=== PATIENT | female | born 1960 | race Caucasian/White ===

== ENCOUNTER → 2017-04-02 | Outpatient (CLI) | payer MEDICARE ==
--- NOTE | 2017-04-02 14:13 | WOMENS IMAGING REPORT ---
EXAM DESCRIPTION: BONE DENSITY HIP/SPINE COMPLETED DATE/TIME: 04/02/2017 1:57 pm REASON FOR STUDY: M81.0 M81.0 AGE-RELATED OSTEOPOROSIS W/O CURRENT PATHOLOGICAL FRAC COMPARISON: None. TECHNIQUE: Dual-Energy X-ray Absorptiometry (DEXA) of the AP Spine and Hip. LIMITATIONS: None. FINDINGS: LUMBAR SPINE: The bone mineral density (BMD) measured from L1-L4 in the AP projection correlates with a T-score of -0.8, which is normal as defined by the World Health Organization. HIP: The bone mineral density (BMD) measured in the left hip correlates with a T-score of 0.9, which is no rmal as defined by the World Health Organization. IMPRESSION: 1. LUMBAR SPINE: Normal 2. HIP: Normal COMMENT: The World Health Organization defines low BMD as follows: T-score: Normal: Greater than -1.0 Osteopenia: Between -1.0 and -2.5 Osteoporosis: Less than -2.5 without fractures Established osteoporosis: Less than -2.5 with fractures In general, you may wish to consider: Diagnosis Treatment Follow-up DEXA Normal BMD Prevention 2-3 years Osteopenia Prevention/Therapy 1-2 years Osteoporosis Therapy Yearly TECHNICAL DOCUMENTATION: JOB ID: [id number]- All Rights Reserved
--- NOTE | 2017-04-02 17:07 | WOMENS IMAGING REPORT ---
EXAM DESCRIPTION: 3D SCREENING MAMMO BILAT COMPLETED DATE/TIME: 04/02/2017 1:44 pm REASON FOR STUDY: Z12.31, ROUTINE SCREENING MAMMO M81.0 AGE-RELATED OSTEOPOROSIS W/O CURRENT PATHOL OGICAL FRAC COMPARISON: 03/30/2016 TECHNIQUE: Standard craniocaudal and mediolateral oblique views of each breast recorded using digita l acquisition and breast tomosynthesis. LIMITATIONS: None. FINDINGS: Findings present which are benign by mammographic criteria. No suspicious masses, calcifi cations or architectural distortion. Pertinent benign findings: Right breast stereotactic biopsy markers. Benign right breast calcificati ons. Read with the assistance of CAD. .[facility] - R2 Cenova Version 1.3 .[facility] - R2 Cenova Version 1.3 .[facility] - R2 Cenova Version 2.4 .[facility] - R2 Cenova Version 2.4 .[facility] - R2 [employer] Version 9.2 Benign mammographic findings may include one or more of the following: Smooth masses, popcorn/rim/co arse calcifications, asymmetries, post-procedure changes, and lesions with long-standing stability. IMPRESSION: BENIGN MAMMOGRAPHIC FINDINGS. BIRADS 2 BREAST DENSITY: b. There are scattered areas of fibroglandular density. BIRAD: 2 BENIGN FINDING(S) RECOMMENDATION: RECOMMENDATION: ROUTINE SCREENING Please consider bilateral screening tomosynthesis in March 2018 COMMENT: The patient has been notified of the results by letter per SA requirements. Additional no tification policies are in place for contacting patient with suspicious or incomplete findings. Quality ID #[id number]: The [employer] recommends an annual screening mammogram for women aged 40 years or over. This facility utilizes a reminder system to ensure that all patients receive reminder letters, and/or direct phone calls for appointments. This includes reminders for routine scr eening mammograms, diagnostic mammograms, or other Breast Imaging Interventions when appropriate. Th is patient will be placed in the appropriate reminder system. The [employer] (ACR) has developed recommendations for screening MRI of the breast s in certain patient populations, to be used in conjunction with mammography. Breast MRI surveillanc e may be appropriate for women with more than 20% lifetime risk of developing breast cancer as deter mined by genetic testing, significant family history of the disease, or history of mantle radiation f or Hodgkins Disease. ACR Practice Guidelines 2008. DBT Technology DBT is a type of tomographic mammography. With conventional mammography, overlapping breast tissue ma y make lesions difficult to detect, even with good compression. DBT uses an x-ray tube that rotates a round the breast, taking images at different angles. These images are then combined to create thin sl ices of the breast that the radiologist can view as a 3D reconstruction. The Hologic unit can perform full-field digital mammograms (2D imaging); or DBT (3D imaging); or both, in a combination mode that quickly performs both the mammogram and the tomosynthesis scan while the breast is still compressed. PQRS 6045F: Fluoroscopic imaging is not utilized for breast tomosynthesis. TECHNICAL DOCUMENTATION: FINDING NUMBER: (1) ASSESSMENT: (1) JOB ID: [id number] [employer]- All Rights Reserved
== END ==
LOC: WI 13:12
PROVIDERS: ATTEND Internal Medicine
DX: M81.0 Age-related osteoporosis without current pathological fracture (principal)
CPT/HCPCS: 77063; 77080; G0202; 77067

== ENCOUNTER → 2017-12-07 | Outpatient (CLI) | payer MEDICARE ==
--- NOTE | 2017-12-07 10:42 | RADIOLOGY REPORT (SQ) ---
EXAM DESCRIPTION: CT SOFT TISSUE NECK WITH COMPLETED DATE/TIME: 12/07/2017 9:10 am REASON FOR STUDY: M54.2 CERVICALGIA R59.9 ENLARGED LYMPH NODES, UNSPECIFIED M54.2 CERVICALGIA R59.9 ENLARGED LYMPH NODES, UNSPECIFIED COMPARISON: None. TECHNIQUE: Post IV contrasted scanning from skull base through lung apices with review of bone, soft tissue and lung windows. Reconstructed coronal and sagittal MPR images reviewed. All images stored on PACS. All CT scanners at this facility use dose modulation, iterative reconstruction, and/or weight based d osing when appropriate to reduce radiation dose to as low as reasonably achievable (ALARA). [facility]: Dose Right [facility]: CareDose [facility]: Dose Right [facility]: Teradose 4D [facility]: [email or web address] CONTRAST TYPE AND DOSE: contrast/concentration: Isovue 370.00 mg/ml; Total Contrast Delivered: 75.0 ml; Total Saline Delivered: 55.0 ml RENAL FUNCTION: GFR > 60. RADIATION DOSE: . LIMITATIONS: None. FINDINGS: SKULL BASE: Intact. MAJOR SALIVARY GLANDS: No solid or cystic masses. No inflammatory changes. LYMPHADENOPATHY: Mildly enlarged anterior triangle nodes above the hyoid, the largest about 10 x 12 mm. Adenopathy is fairly symmetric bilaterally. No significant infra hyoid or supraclavicular adeno artur. MUCOSAL MASSES OR ASYMMETRY: No mucosal masses or asymmetry. LARYNX/CORDS: No abnormal findings. VASCULAR STRUCTURES: The major vessels are patent. LUNG APICES: COPD. BONES: Intact. THYROID: Normal size. No masses. PARANASAL SINUSES: Clear. OTHER: No other significant finding. IMPRESSION: Mild cervical adenopathy. No underlying mass. TECHNICAL DOCUMENTATION: JOB ID: [id number] Quality ID # [id number]: Final reports with documentation of one or more dose reduction techniques (e.g., Au tomated exposure control, adjustment of the mA and/or kV according to patient size, use of iterative reconstruction technique) 2010 [employer]- All Rights Reserved Reading location - IP/workstation name: [email or web address]
== END ==
LOC: RAD 08:31
PROVIDERS: ATTEND Physician Assistant Medical
DX: M54.2 Cervicalgia (principal); R59.9 Enlarged lymph nodes, unspecified
CPT/HCPCS: 70491

== ENCOUNTER → 2017-12-19 | Outpatient (CLI) | payer MEDICARE ==
--- NOTE | 2017-12-20 19:17 | RADIOLOGY REPORT (SQ) ---
EXAM DESCRIPTION: PET CT SKULL/THIGH COMPLETED DATE/TIME: 12/19/2017 5:57 pm REASON FOR STUDY: BREAST CANCER C50.411 MALIG NEOPLM OF UPPER-OUTER QUADRANT OF RIGHT FEMALE COMPARISON: CT soft tissue neck 12/07/2017 Report from PET-CT 02/19/2010, [place] RADIONUCLIDE AND DOSE: 11.3 mCi F18 FDG The route of agent administration: Intravenous FASTING BLOOD SUGAR: 92 mg/dl CONTRAST TYPE AND DOSE: No CT contrast given. TECHNIQUE: Blood glucose level was verified. Above dose of FDG was injected intravenously. 2-D seg mented attenuation correction images were obtained from the base of the skull to the midthighs. Nonc ontrast CT images were obtained for attenuation correction and fusion with emission images. CT image s were performed without oral or intravenous contrast and are not sensitive for parenchymal lesions. A series of overlapping emission PET images were obtained. [facility] by the radiologist. Images stored on PACS. LIMITATIONS: None. FINDINGS: HEAD AND NECK: There are mildly enlarged jugulodigastric lymph nodes with activity at base line. Right jugulodigastric lymph node 1.2 x 1.1 cm in size with SUV 2.5. Left jugulodigastric lymp h node 1.3 x 0.9 cm with SUV 2.2. There is mild diffuse activity throughout the pharyngeal tonsils and lymphoid tissue at the tongue ba se, ranging from 3.1 to 4.3 SUV. CHEST: No areas of abnormal metabolic activity in the chest. ABDOMEN AND PELVIS: No areas of abnormal metabolic activity in the abdomen or pelvis. Expected physi ologic activity is present in the genitourinary system and bowel. PROXIMAL LOWER EXTREMITIES: No areas of abnormal metabolic activity in the soft tissues of the lower extremities. BONES: No abnormal metabolic activity in the visualized skeleton. ADDITIONAL CT FINDINGS: Old right breast and axilla surgery, no increased metabolic activity worrisom e for residual or recurrent right breast cancer. 3 x 2 cm benign cyst in the liver at the falciform ligament. Obstructive lung disease. Small hiatal hernia. OTHER: Liver background activity 2.4 SUV. Blood pool background activity 1.5 SUV IMPRESSION: Mild increased activity of lymphoid tissue at the pharyngeal tonsils and tongue base wit hout well-circumscribed mass. Mildly enlarged jugulodigastric lymph nodes with metabolic activity at baseline No PET-CT evidence of recurrent or residual breast cancer TECHNICAL DOCUMENTATION: JOB ID: [id number] [employer]- All Rights Reserved Reading location - IP/workstation name: [email or web address]
== END ==
LOC: RAD 15:52
PROVIDERS: ATTEND Internal Medicine
DX: C50.411 Malignant neoplasm of upper-outer quadrant of right female breast (principal)
CPT/HCPCS: 78815; A9552

== ENCOUNTER 2018-01-07 06:01 | Day surgery (SDC) | payer MEDICARE ==
[2018-01-06 10:23] LABS: HEMATOCRIT 41.9 % (36.0-47.0); MEAN CORPUSCULAR HEMOGLOBIN 27.7 pg (27.0-33.4); MEAN CORPUSCULAR HGB CONC 33.4 g/dL (32.0-36.0); MEAN CORPUSCULAR VOLUME 83 fl (80-97); PLATELET COUNT 253 10^3/uL (150-450); RED BLOOD COUNT 5.06 10^6/uL (3.72-5.28); WHITE BLOOD COUNT 6.9 10^3/uL (4.0-10.5)
[2018-01-06 10:38] LABS: ANION GAP 10 (5-19); BLOOD UREA NITROGEN 10 mg/dL (7-20); CALCIUM 10.2 mg/dL (8.4-10.2); CARBON DIOXIDE 32 mmol/L (22-30); CHLORIDE 101 mmol/L (98-107); GLUCOSE 89 mg/dL (75-110); POTASSIUM 4.9 mmol/L (3.6-5.0); SODIUM 143.4 mmol/L (137-145)
[~2018-01-07 06:01] MED LIST: CEFAZOLIN SODIUM 2 GM in NORMAL SALINE 100 ML IV PRN; LACTATED RINGERS 1000 ML IV PRN; LIDOCAINE 0.5% INJ-PF (5 MG/ML) 50 ML SDV SUBCUT PRN
[2018-01-07] MEDS ORDERED: LIDOCAINE 2% INJ-PF (20 MG/ML) 10 ML AMPUL ONE (06:25)
[2018-01-07] MEDS ORDERED: FENTANYL CITRATE INJ/PF 100 MCG/2 ML AMPUL ONE (06:25)
[2018-01-07] MEDS ORDERED: PROPOFOL INJ 200 MG/20 ML VIAL IV ONE (06:26)
[2018-01-07] MEDS ORDERED: DEXAMETHASONE SOD PHOSPHATE INJ 4 MG/1 ML VIAL ONE (06:26)
[2018-01-07] MEDS ORDERED: ONDANSETRON HCL INJ/PF 4 MG/2 ML SDV ONE (06:26)
[2018-01-07] MEDS ORDERED: MIDAZOLAM 2 MG/2 ML INJ ONE (06:26)
[2018-01-07] MEDS ORDERED: OXYMETAZOLINE HCL 0.05% NASAL SPRAY 15 ML BOTTLE ONE (08:23)
[2018-01-07] MEDS ORDERED: MEPERIDINE HCL/PF INJ 25 MG/1 ML DISP.SYRIN IV PRN (08:27)
[2018-01-07] MEDS ORDERED: OXYCODONE-ACETAMINOPHEN 5-325 MG TABLET PO PRN ×2 (08:27)
[2018-01-07] MEDS ORDERED: MORPHINE SULFATE 10 MG/ML INJ IV PRN (08:27)
[2018-01-07] MEDS ORDERED: DIPHENHYDRAMINE HCL 50 MG/ML VIAL IV PRN (08:27)
[2018-01-07] MEDS ORDERED: FENTANYL CITRATE INJ/PF 100 MCG/2 ML AMPUL IV PRN ×3 (08:27)
[2018-01-07] MEDS ORDERED: PROMETHAZINE HCL INJ 25 MG/1 ML VIAL IV PRN ×3 (08:27→09:51)
[2018-01-07] MEDS ORDERED: RINGERS SOLUTION,LACTATED 1,000 ML IV PRN (09:51)
[2018-01-07] MEDS ORDERED: HYDROCOD/ACETAMIN 7.5-325 MG/15 ML ORAL SOLN UDCUP PO PRN (09:51)
[2018-01-07] MEDS ORDERED: ONDANSETRON HCL INJ/PF 4 MG/2 ML SDV IV PRN (09:51)
[2018-01-07 11:12] VITALS: BP 144/65
--- NOTE | 2018-01-17 21:29 | OPERATIVE REPORT E ---
Operative Report NAME: KENNETH GARCIA : 1960 AGE: 57Y DATE OF SURGERY: 01/07/2018 ROOM: PREOPERATIVE DIAGNOSES: 1. ODYNOPHAGIA. 2. HISTORY OF BREAST CANCER. 3. CHRONIC DYSPHAGIA. POSTOPERATIVE DIAGNOSES: 1. ODYNOPHAGIA. 2. HISTORY OF BREAST CANCER. 3. CHRONIC DYSPHAGIA. OPERATION: Upper airway rigid endoscopy with directed biopsies. SURGEON: JUAREZ KILPATRICK D.O. ANESTHESIA: General endotracheal tube. ANESTHESIA STAFF: NARGIS Prieto. ESTIMATED BLOOD LOSS: Less than 5 mL. FLUIDS: 1100 mL. COMPLICATIONS: None. DRAINS: None. SPONGE COUNT: Verified. MATERIALS FORWARDED SPECIMEN: 1. Numerous biopsies from the left base of tongue area. 2. Biopsies from the vallecula. 3. Biopsies from the right base of tongue. These specimens were sent to pathology for frozen and permanent pathology evaluation. Intraoperatively, the pathologist reported that adequate specimens had been obtained, and no malignancy or concerning findings were noted initially on frozen section. FINDINGS: 1. Left base of tongue area adjacent to the vallecula with area of concern that correlated with the area noted during clinic endoscopic evaluation. 2. The vallecula was with a midline area of fullness. 3. Right base of tongue was overall unremarkable in appearance. 4. There were no overt exophytic necrotic areas of concern noted. INDICATIONS: This is a 57-year-old white female who was seen and evaluated in the [facility] office. The patient had been referred from [facility] for history of dysphagia and odynophagia. The patient stated that in September 2017, she had the flu, and ever since then, she feels like her neck glands have been swollen. The patient states that they are not increasing in size, but however, feel persistently enlarged. The patient, otherwise, reports chronic symptoms that are consistent with dysphagia since September 2017. The patient otherwise denies any referred otalgia, unexplained weight loss, or night sweats. The patient reports a cough and frequent need to clear her throat, and is being treated for reflux with Zantac twice a day and Prilosec 1 time per day. The patient is also with history of stage III breast cancer, and was again referred from [facility] due to the concern for cervical adenopathy and odynophagia and hoarseness. Prior to her referral, the patient had undergone a CT of the neck, as well as a PET CT with a right jugular digastric 1.2-cm lymph node with SUV of 2.5, left jugulodigastric lymph node of 1.3 cm with SUV of 2.2, and mild diffuse activity through the pharyngeal and lymphoid tissues at the base of tongue, ranging from 3.1 to 4.3 SUV. Otherwise, there were not any other areas of uptake noted. The patient also underwent clinic-based flexible endoscopic evaluation with 1 area at the left base of tongue adjacent to the vallecula that appeared concerning, and on narrow band imaging/NBI, this area appeared with a mild prominence of blood vessels in comparison to the surrounding tissue. After extensive discussion with the patient, recommendation and plan was made to proceed to the main operating room for upper airway rigid endoscopy with directed biopsies. The procedure and all of its risks and complications were discussed in detail with the patient. She voiced an understanding of the described surgical plan, agreed to proceed, and consent was obtained. PROCEDURE: The patient was taken to the main operating room and was placed on the operating room table in the supine position. Appropriate monitors were placed. Using mask and IV access, general anesthesia was induced. The patient was next transorally intubated without difficulty. At this point, a mouthguard was placed over the patient's upper gingiva. A rigid laryngoscope was introduced, followed by directed biopsies, as noted above. The pathologist confirmed adequate tissue had been taken, with no malignancy or concerning findings noted on initial evaluation. At this point, Afrin-soaked neuro patties were placed over the areas that had been biopsied, and were secured outside the mouth. At this point, the rigid laryngoscope was withdrawn and the mouthpiece was removed. There was a very mild abrasion to the right upper gingiva noted, but no active bleeding was noted. At this point, the patient was returned to the Anesthesia staff and was allowed to emerge from general anesthesia. The Afrin-soaked neuro patties were removed. The patient was then extubated in the main operating room and was transported to the post anesthesia recovery unit in stable condition. There were no complications. DICTATING PHYSICIAN: JUAREZ KILPATRICK D.O. [id number] PHY#: [id number] ID: [id number] JOB#: [id number] ACCT: [id number] cc:JUAREZ KILPATRICK D.O. >
== END 2018-01-07 10:55 | disposition home or self-care (01) ==
LOC: OROUT 06:01
PROVIDERS: ATTEND Otolaryngology
PROC: 0CBM8ZX Excision of Pharynx, Via Natural or Artificial Opening Endoscopic, Diagnostic (ICD-10-PCS; principal; 2018-01-07 07:30)
DX: R13.10 Dysphagia, unspecified (principal); K21.9 Gastro-esophageal reflux disease without esophagitis; J30.9 Allergic rhinitis, unspecified; J01.91 Acute recurrent sinusitis, unspecified; H93.13 Tinnitus, bilateral; Z79.01 Long term (current) use of anticoagulants; Z85.3 Personal history of malignant neoplasm of breast; Z79.899 Other long term (current) drug therapy; Z87.891 Personal history of nicotine dependence
CPT/HCPCS: 36415; 85027; 80048; 88305 ×2; 88311; 31535; J2250; J0690; J1100; J3010; J3490 ×2; J2405; J2704; 320

== ENCOUNTER → 2018-04-04 | Outpatient (CLI) | payer MEDICARE ==
--- NOTE | 2018-04-06 17:07 | WOMENS IMAGING REPORT ---
EXAM DESCRIPTION: 3D SCREENING MAMMO BILAT COMPLETED DATE/TIME: 04/04/2018 9:35 am REASON FOR STUDY: SCREENING MAMMO Z12.31 ENCNTR SCREEN MAMMOGRAM FOR MALIGNANT NEOPLASM OF LINDY COMPARISON: 2015, 2016 TECHNIQUE: Standard craniocaudal and mediolateral oblique views of each breast recorded using digita l acquisition and breast tomosynthesis. LIMITATIONS: None. FINDINGS: No masses, calcifications or architectural distortion. No areas of suspicion. Read with the assistance of CAD. .[facility] - R2 Cenova Version 1.3 .[facility] - R2 Cenova Version 1.3 .[facility] - R2 Cenova Version 2.4 .[facility] [place] - R2 Cenova Version 2.4 .[facility] - R2 [employer] Version 9.2 IMPRESSION: NORMAL MAMMOGRAM. BIRADS 1. BREAST DENSITY: b. There are scattered areas of fibroglandular density. BIRAD: 1 NEGATIVE RECOMMENDATION: ROUTINE SCREENING COMMENT: The patient has been notified of the results by letter per SA requirements. Additional no tification policies are in place for contacting patient with suspicious or incomplete findings. Quality ID #[id number]: The [employer] recommends an annual screening mammogram for women aged 40 years or over. This facility utilizes a reminder system to ensure that all patients receive reminder letters, and/or direct phone calls for appointments. This includes reminders for routine scr eening mammograms, diagnostic mammograms, or other Breast Imaging Interventions when appropriate. Th is patient will be placed in the appropriate reminder system. The [employer] (ACR) has developed recommendations for screening MRI of the breast s in certain patient populations, to be used in conjunction with mammography. Breast MRI surveillanc e may be appropriate for women with more than 20% lifetime risk of developing breast cancer as deter mined by genetic testing, significant family history of the disease, or history of mantle radiation f or Hodgkins Disease. ACR Practice Guidelines 2008. DBT Technology DBT is a type of tomographic mammography. With conventional mammography, overlapping breast tissue ma y make lesions difficult to detect, even with good compression. DBT uses an x-ray tube that rotates a round the breast, taking images at different angles. These images are then combined to create thin sl ices of the breast that the radiologist can view as a 3D reconstruction. The POPRAGE[employer] unit can perform full-field digital mammograms (2D imaging); or DBT (3D imaging); or both, in a combination mode that quickly performs both the mammogram and the tomosynthesis scan while the breast is still compressed. PQRS 6045F: Fluoroscopic imaging is not utilized for breast tomosynthesis. TECHNICAL DOCUMENTATION: FINDING NUMBER: (1) ASSESSMENT: (1) JOB ID: [id number] [employer]- All Rights Reserved Reading location - IP/workstation name: [email or web address]
== END ==
LOC: WI 08:02
PROVIDERS: ATTEND Physician Assistant Medical
DX: Z12.31 Encounter for screening mammogram for malignant neoplasm of breast (principal)
CPT/HCPCS: 77063; 77067

== ENCOUNTER 2018-11-10 15:41 | Emergency (ER) | payer MEDICARE ==
[2018-11-10] MEDS ORDERED: DIPH/PERTUSS(ACELL)/TETANUS VAC/PF 0.5 ML SYR (>=10YO) IM ONE (17:39)
--- NOTE | 2018-11-10 17:40 | ER Document Report ---
ED Medical Screen (RME) - General Chief Complaint: Finger Injury Stated Complaint: FINGER LACERTION Time Seen by Provider: 11/10/18 17:32 Primary Care Provider: ZACARIAS MAGAÑA PA-C [Primary Care Provider] - Follow up as needed Mode of Arrival: Ambulatory Information source: Patient Notes: 57-year-old female presents emergency department with a laceration to her middle finger on the right hand. Patient states that she is reaching in the car this morning and cut her finger on a piece of broken glass. Patient cleaned the wound and wrapped it. Bleeding is controlled. Patient is neurovascularly intact. Patient states that her tetanus was updated approximately 10 years ago. I have greeted and performed a rapid initial assessment of this patient. A c omprehensive ED assessment and evaluation of the patient, analysis of test results and completion of the medical decision making process will be conducted by additional ED providers. PHYSICAL EXAMINATION: GENERAL: Well-appearing, well-nourished and in no acute distress. HEAD: Atraumatic, normocephalic. EYES: Pupils equal round extraocular movements intact, conjunctiva are normal. ENT: Nares patent SKIN: Right middle finger laceration. TRAVEL OUTSIDE OF THE [place] IN LAST 30 DAYS: No - Related Data Allergies/Adverse Reactions: No Known Allergies Allergy (Verified 01/07/18 06:42) Past Medical History - Social History Chew tobacco use (# tins/day): No Frequency of alcohol use: None Drug Abuse: None - Past Medical History Cardiac Medical History: Denies: Hx Coronary Artery Disease, Hx Heart Attack Comment Only: Hx Hypertension - occasionally Pulmonary Medical History: Reports: Hx Asthma, Hx Bronchitis, Hx Pneumonia Denies: Hx COPD Neurological Medical History: Denies: Hx Cerebrovascular Accident, Hx Seizures Renal/ Medical History: Denies: Hx Peritoneal Dialysis Musculoskeltal Medical History: Denies Hx Arthritis Past Surgical History: Reports: Hx Breast Surgery - lumpectomy, Hx Orthopedic Surgery - Immunizations Hx Diphtheria, Pertussis, Tetanus Vaccination: Yes History of Influenza Vaccine for 07/2017 - 12/2017 Season: Yes Influenza Administration Date for 07/2017 - 12/2017 Season: 08/04/17 Physical Exam - Vital signs Vitals: Temp Pulse Resp BP Pulse Ox 98.1 F 82 16 111/93 H 96 11/10/18 16:23 11/10/18 16:23 11/10/18 16:23 11/10/18 16:23 11/10/18 16:23 Course - Vital Signs Vital signs: Temp Pulse Resp BP Pulse Ox 98.1 F 82 16 111/93 H 96 11/10/18 16:23 11/10/18 16:23 11/10/18 16:23 11/10/18 16:23 11/10/18 16:23 Doctor's Discharge - Discharge Referrals: ZACARIAS MAGAÑA, PAJoseC [Primary Care Provider] - Follow up as needed
--- NOTE | 2018-11-10 17:58 | RADIOLOGY REPORT (SQ) ---
EXAM DESCRIPTION: HAND RIGHT 3 VIEWS COMPLETED DATE/TIME: 11/10/2018 5:50 pm REASON FOR STUDY: laceration COMPARISON: None. EXAM PARAMETERS: NUMBER OF VIEWS: Three views. TECHNIQUE: AP, lateral and oblique radiographic images acquired of the right hand. LIMITATIONS: None. FINDINGS: MINERALIZATION: Normal. BONES: No acute fracture or dislocation. No worrisome bone lesions. JOINTS: No effusions. SOFT TISSUES: On the AP image only at the level of the DIP joint there are 2 radiodensities. Likely artifact or chondrocalcinosis, similar to the digits 2 and 4, but cannot exclude foreign body. OTHER: No other significant finding. IMPRESSION: Possible, but unlikely, foreign body adjacent to the medial DIP joint of the 3rd digit. TECHNICAL DOCUMENTATION: JOB ID: [id number] [email or web address]- All Rights Reserved Reading location - IP/workstation name: [email or web address]
[2018-11-10] MEDS ORDERED: LIDOCAINE 1% INJ-PF (10 MG/ML) 30 ML SDV INJ ONE (18:28)
[2018-11-10] MEDS ORDERED: LIDOCAINE 1% INJ-PF (10 MG/ML) 30 ML SDV ONE (18:45)
--- NOTE | 2018-11-10 19:25 | ER Document Report ---
ED Hand/Wrist Injury - General Chief Complaint: Finger Injury Stated Complaint: FINGER LACERTION Time Seen by Provider: 11/10/18 17:32 Primary Care Provider: ZACARIAS MAGAÑA PA-C [Primary Care Provider] - Follow up as needed Mode of Arrival: Ambulatory Notes: Patient is a 57-year-old female who presents to the emergency department with laceration to her right third digit. Patient reports she was grabbing a glass out of her cabinet when she did not realize the glass was broken. Bleeding is active at this time, she is unsure when her last tetanus was. TRAVEL OUTSIDE OF THE [place] IN LAST 30 DAYS: No - Related Data Allergies/Adverse Reactions: No Known Allergies Allergy (Verified 01/07/18 06:42) Past Medical History - General Information source: Patient - Social History Smoking Status: Former Smoker Chew tobacco use (# tins/day): No Frequency of alcohol use: None Drug Abuse: None Family History: Reviewed & Not Pertinent Patient has suicidal ideation: No Patient has homicidal ideation: No - Past Medical History Cardiac Medical History: Denies: Hx Coronary Artery Disease, Hx Heart Attack Comment Only: Hx Hypertension - occasionally Pulmonary Medical History: Reports: Hx Asthma, Hx Bronchitis, Hx Pneumonia Denies: Hx COPD Neurological Medical History: Denies: Hx Cerebrovascular Accident, Hx Seizures Renal/ Medical History: Denies: Hx Peritoneal Dialysis Musculoskeletal Medical History: Denies Hx Arthritis Past Surgical History: Reports: Hx Breast Surgery - lumpectomy, Hx Orthopedic Surgery - Immunizations Hx Diphtheria, Pertussis, Tetanus Vaccination: Yes Hx Pneumococcal Vaccination: 07/04/15 Review of Systems - Review of Systems Constitutional: No symptoms reported EENT: No symptoms reported Cardiovascular: No symptoms reported Respiratory: No symptoms reported Gastrointestinal: No symptoms reported Genitourinary: No symptoms reported Female Genitourinary: No symptoms reported Musculoskeletal: No symptoms reported Skin: See HPI Hematologic/Lymphatic: No symptoms reported Neurological/Psychological: No symptoms reported Physical Exam - Vital signs Vitals: Temp Pulse Resp BP Pulse Ox 98.1 F 82 16 111/93 H 96 11/10/18 16:23 11/10/18 16:23 11/10/18 16:23 11/10/18 16:23 11/10/18 16:23 - Notes Notes: PHYSICAL EXAMINATION: GENERAL: Well-appearing, well-nourished and in no acute distress. HEAD: Atraumatic, normocephalic. EYES: Pupils equal round extraocular movements intact, conjunctiva are normal. ENT: Nares patent NECK: Normal range of motion LUNGS: No respiratory distress Musculoskeletal: Normal range of motion NEUROLOGICAL: Normal speech, normal gait. PSYCH: Normal mood, normal affect. SKIN: Warm, Dry, normal turgor, no rashes or lesions noted. 2 cm laceration noted to tip of right third digit. There is also a small area that is avulsed. Mild active bleeding noted. Normal cap refill, normal motor and sensation distal to injury. Course - Re-evaluation Re-evalutation: X-ray shows possible but unlikely foreign body noted to PIP joint. I did copiously irrigate this area prior to suturing. The images were also reviewed and I do not believe there was a foreign body in this area. Suturing was done under sterile technique, see procedure note. Patient tolerated well. There was a small area that was an avulsion that was actively bleeding. A small amount of Surgicel was placed to this. Patient will keep this in place for 24 hours and remove this tomorrow. Patient given laceration care instructions and ED return precautions. - Vital Signs Vital signs: Temp Pulse Resp BP Pulse Ox 97.8 F 70 16 149/84 H 99 11/10/18 19:39 11/10/18 19:39 11/10/18 19:39 11/10/18 19:39 11/10/18 19:39 Procedures - Laceration/Wound Repair Right 3rd digit Wound length (cm): 2 Wound's Depth, Shape: Superficial Laceration pre-procedure: Sterile PPE donned Anesthetic type: 1% Lidocaine Volume Anesthetic (mLs): 4 Irrigated w/ Saline (mLs): 200 Wound Repaired With: Sutures, Thrombi pad Suture Size/Type: 4:0 Number of Sutures: 4 Layer Closure?: No Post-procedure wound care: Sterile dressing applied Post-procedure NV exam normal: Yes Complications: No Discharge - Discharge Clinical Impression: Laceration Condition: Stable Disposition: HOME, SELF-CARE Additional Instructions: Laceration Care Your laceration has been sutured to keep the skin edges aligned during healing. The time of suture removal depends on the nature and location of your cut. Please follow the care instructions the doctor has outlined for you and return for further care, according to the schedule you've been given. Keep the wound and dressing clean. Unless you were told otherwise, you may shower daily, blotting the wound dry with a clean, unused towel. At other times, If the dressing gets wet or blood soaked, remove it and blot the wound dry, then reapply a new dressing. Unless you were instructed otherwise, dressings should be changed at least daily. If any signs of infection occur (swelling, redness, increasing tenderness, red streaks, tender lumps in the armpit or groin above the laceration, or fever), see the doctor immediately. Please return to the emergency department or your primary care provider in 10 days for suture removal. Please return earlier if you develop any signs of infection such as increased redness, swelling, foul-smelling drainage or fever. Prescriptions: Cephalexin [Keflex] 500 mg PO BID #20 capsule Referrals: ZACARIAS MAGAÑA PA-C [Primary Care Provider] - Follow up as needed
[2018-11-10 19:48] VITALS: BP 149/84
== END 2018-11-10 19:43 | disposition home or self-care (01) ==
LOC: ER 15:41
DX: S61.212A Laceration without foreign body of right middle finger without damage to nail, initial encounter (principal); Z23 Encounter for immunization; W25.XXXA Contact with sharp glass, initial encounter; Y92.000 Kitchen of unspecified non-institutional (private) residence as the place of occurrence of the external cause
CPT/HCPCS: 99283; 90471; 73130; 90715; 12001; J3490

== ENCOUNTER → 2019-04-05 | Outpatient (CLI) | payer MEDICARE ==
--- NOTE | 2019-04-05 09:42 | WOMENS IMAGING REPORT ---
EXAM DESCRIPTION: BONE DENSITY HIP/SPINE COMPLETED DATE/TIME: 04/05/2019 8:34 am REASON FOR STUDY: Z12.31 ROUTINE 3D BILATERAL SCREENING, N95.1 MENOPAUSAL AND FEMALE CLIMACTE Z12.31 ENCNTR SCREEN MAMMOGRAM FOR MALIGNANT NEOPLASM OF LINDY N95.1 MENOPAUSAL AND FEMALE CLIMACTERIC STAT ES Z79.811 J[facility] (CURRENT) USE OF AROMATASE INHIBITORS COMPARISON: 2016 TECHNIQUE: Dual-Energy X-ray Absorptiometry (DEXA) of the AP Spine and Hip. LIMITATIONS: None. FINDINGS: LUMBAR SPINE: The bone mineral density (BMD) measured from L1-L4 in the AP projection correlates with a T-score of -0.3, which is normal as defined by the World Health Organization. BMD Change vs Baseline: N/A HIP: The bone mineral density (BMD) measured in the left hip correlates with a T-score of -1.0, which is o steopenia as defined by the World Health Organization. BMD Change vs Baseline: Worse, previously normal. 10 year Fracture Risk Assessment: Major Osteoporotic Fracture: Not available. Hip Fracture: Not available. IMPRESSION: 1. LUMBAR SPINE WHO CLASSIFICATION: NORMAL. 2. HIP WHO CLASSIFICATION: OSTEOPENIA. OVERALL ASSESSMENT: WHO CLASSIFICATION: NORMAL. COMMENT: The World Health Organization defines low BMD as follows: T-score: Normal: Greater than -1.0 Osteopenia: Between -1.0 and -2.5 Osteoporosis: Less than -2.5 without fractures Established osteoporosis: Less than -2.5 with fractures In general, you may wish to consider: Diagnosis Treatment Follow-up DEXA Normal BMD Prevention 2-3 years Osteopenia Prevention/Therapy 1-2 years Osteoporosis Therapy Yearly TECHNICAL DOCUMENTATION: JOB ID: [id number]- All Rights Reserved Reading location - IP/workstation name: [email or web address]
--- NOTE | 2019-04-05 15:26 | WOMENS IMAGING REPORT ---
EXAM DESCRIPTION: 3D SCREENING MAMMO BILAT COMPLETED DATE/TIME: 04/05/2019 8:34 am REASON FOR STUDY: Z12.31 ROUTINE 3D BILATERAL SCREENING, N95.1 MENOPAUSAL AND FEMALE CLIMACTE Z12.31 ENCNTR SCREEN MAMMOGRAM FOR MALIGNANT NEOPLASM OF LINDY N95.1 MENOPAUSAL AND FEMALE CLIMACTERIC STAT ES Z79.811 [facility] (CURRENT) USE OF AROMATASE INHIBITORS COMPARISON: None multiple since 2016 EXAM PARAMETERS: Standard craniocaudal and mediolateral oblique views of each breast recorded using digital acquisition and breast tomosynthesis. Read with the assistance of CAD. .[facility] - [employer] Worker Version 9.2 LIMITATIONS: None. FINDINGS: Findings present which are benign by mammographic criteria. No suspicious masses, calcific ations or architectural distortion. Pertinent benign findings: Bilateral breast biopsy clips are present. Benign mammographic findings may include one or more of the following: Smooth masses, popcorn/rim/coa rse calcifications, asymmetries, post-procedure changes, and lesions with long-standing stability. IMPRESSION: BENIGN MAMMOGRAPHIC FINDINGS. BIRADS 2 BREAST DENSITY: b. There are scattered areas of fibroglandular density. BIRAD: ASSESSMENT: 2 BENIGN FINDING(S) RECOMMENDATION: ROUTINE SCREENING COMMENT: The patient has been notified of the results by letter per SA requirements. Additional no tification policies are in place for contacting patient with suspicious or incomplete findings. Quality ID #225: The [employer] recommends an annual screening mammogram for women aged 40 years or over. This facility utilizes a reminder system to ensure that all patients receive reminder letters, and/or direct phone calls for appointments. This includes reminders for routine scr eening mammograms, diagnostic mammograms, or other Breast Imaging Interventions when appropriate. Th is patient will be placed in the appropriate reminder system. TECHNICAL DOCUMENTATION: FINDING NUMBER: (1) ASSESSMENT: (1) JOB ID: [id number] [employer]- All Rights Reserved Reading location - IP/workstation name: [email or web address]
== END ==
LOC: WI 07:58
PROVIDERS: ATTEND Internal Medicine
DX: Z12.31 Encounter for screening mammogram for malignant neoplasm of breast (principal); N95.1 Menopausal and female climacteric states; Z79.811 Long term (current) use of aromatase inhibitors
CPT/HCPCS: 77063; 77067; 77080

== ENCOUNTER → 2020-03-18 | Outpatient (CLI) | payer MEDICARE | LOC: OD 15:26 | PROVIDERS: ATTEND Otolaryngology | DX: J30.9 Allergic rhinitis, unspecified (principal) | CPT/HCPCS: 36415; 82785; 86003 ==

== ENCOUNTER → 2020-04-08 | Outpatient (CLI) | payer MEDICARE ==
--- NOTE | 2020-04-08 08:35 | WOMENS IMAGING REPORT ---
EXAM DESCRIPTION: 3D SCREENING MAMMO BILAT IMAGES COMPLETED DATE/TIME: 04/08/2020 8:03 am REASON FOR STUDY: Z12.31 ENCOUNTER FOR SCREENING MAMMOGRAM FOR MALIGNANT NEOPLASM OF BREAST Z12.31 ENCNTR SCREEN MAMMOGRAM FOR MALIGNANT NEOPLASM OF LINDY COMPARISON: 2017 and subsequent EXAM PARAMETERS: Views: Standard craniocaudal and mediolateral oblique views of each breast recorded using digital acquisition and breast tomosynthesis. Read with the assistance of CAD. .[facility] - [employer] Director Version 9.2 LIMITATIONS: Less than optimal right MLO due to positioning difficulties. Best images possible per technologist. FINDINGS: No suspicious masses, suspicious calcifications or architectural distortion. No areas of c oncern. IMPRESSION: NEGATIVE MAMMOGRAM. BIRADS 1. BREAST DENSITY: c. The breasts are heterogeneously dense, which may obscure small masses. BIRAD: ASSESSMENT: 1 NEGATIVE RECOMMENDATION: ROUTINE SCREENING COMMENT: The patient has been notified of the results by letter per MQSA requirements. Additional no tification policies are in place for contacting patient with suspicious or incomplete findings. Quality ID #225: The [employer] recommends an annual screening mammogram for women aged 40 years or over. This facility utilizes a reminder system to ensure that all patients receive reminder letters, and/or direct phone calls for appointments. This includes reminders for routine scr eening mammograms, diagnostic mammograms, or other Breast Imaging Interventions when appropriate. Th is patient will be placed in the appropriate reminder system. TECHNICAL DOCUMENTATION: FINDING NUMBER: (1) ASSESSMENT: (1) JOB ID: [id number] 2010 [employer]- All Rights Reserved Reading location - IP/workstation name: [email or web address]
== END ==
LOC: WI 07:42
PROVIDERS: ATTEND Internal Medicine
DX: Z12.31 Encounter for screening mammogram for malignant neoplasm of breast (principal)
CPT/HCPCS: 77063; 77067

== ENCOUNTER 2020-05-01 14:37 | Emergency (ER) | payer MEDICARE ==
--- NOTE | 2020-05-01 15:49 | ER Document Report ---
ED Medical Screen (RME) - General Chief Complaint: Abdominal Pain Stated Complaint: ABDOMINAL PAIN,BACK PAIN Time Seen by Provider: 05/01/20 15:45 Primary Care Provider: JC CALDWELL MD [Primary Care Provider] - Follow up as needed Mode of Arrival: Ambulatory Information source: Patient Notes: 59-year-old female presents to ED for complaint of chest tightness admitted to the back this morning. She states she was very short of breath and the diaphoretic and lightheaded. She since since this morning she started having epigastric pain with neck pain. She does have a history of herniated disc but is not the herniated disc that is got of concern today. She does have a history of right breast cancer with chemotherapy and XRT. She does drink 2-3 beer a day is a former smoker and does not use any illicit drugs. She does use her medicines that she is prescribed. She has had a right ankle surgery for calcium buildup and lymph nodes removed from her right axilla and biopsies from both breast due to the cancer. She is alert oriented respirations regular nonlabored at this time. She states she is continued to have the epigastric pain at this time. States she is also continuing to be very lightheaded. I have greeted and performed a rapid initial assessment of this patient. A comprehensive ED assessment and evaluation of the patient, analysis of test results and completion of medical decision making process will be conducted by an additional ED providers. TRAVEL OUTSIDE OF THE [place] IN LAST 30 DAYS: No - Related Data Allergies/Adverse Reactions: No Known Allergies Allergy (Verified 01/07/18 06:42) Past Medical History - Past Medical History Cardiac Medical History: Denies: Hx Coronary Artery Disease, Hx Heart Attack Comment Only: Hx Hypertension - occasionally Pulmonary Medical History: Reports: Hx Asthma, Hx Bronchitis, Hx Pneumonia Denies: Hx COPD Neurological Medical History: Denies: Hx Cerebrovascular Accident, Hx Seizures Renal/ Medical History: Denies: Hx Peritoneal Dialysis Musculoskeltal Medical History: Denies Hx Arthritis Past Surgical History: Reports: Hx Breast Surgery - lumpectomy, Hx Orthopedic Surgery - Immunizations Hx Diphtheria, Pertussis, Tetanus Vaccination: Yes Physical Exam - Vital signs Vitals: Temp Pulse Resp BP Pulse Ox 98.0 F 71 18 135/81 H 92 05/01/20 14:42 05/01/20 14:42 05/01/20 14:42 05/01/20 14:42 05/01/20 14:42 Course - Vital Signs Vital signs: Temp Pulse Resp BP Pulse Ox 98.0 F 71 18 135/81 H 92 05/01/20 14:42 05/01/20 14:42 05/01/20 14:42 05/01/20 14:42 05/01/20 14:42 Doctor's Discharge - Discharge Referrals: JC CALDWELL MD [Primary Care Provider] - Follow up as needed
[2020-05-01] MEDS ORDERED: METOCLOPRAMIDE HCL ORAL SOLN 10 MG/10 ML UDCUP PO ONE (15:50)
[2020-05-01] MEDS ORDERED: MAG HYDROX/AL HYDROX/SIMETH SUSP 30 ML UDCUP PO ONE (15:50)
[2020-05-01] MEDS ORDERED: ASPIRIN 81 MG TABLET, CHEWABLE PO ONE (15:50)
[2020-05-01] MEDS ORDERED: LIDOCAINE 2% VISCOUS SOLN 15 ML UDCUP PO ONE (15:50)
--- NOTE | 2020-05-01 16:46 | RADIOLOGY REPORT (SQ) ---
EXAM DESCRIPTION: CHEST 2 VIEWS IMAGES COMPLETED DATE/TIME: 05/01/2020 4:13 pm REASON FOR STUDY: Chest pain/epigastric pain COMPARISON: None. EXAM PARAMETERS: NUMBER OF VIEWS: two views TECHNIQUE: Digital Frontal and Lateral radiographic views of the chest acquired. RADIATION DOSE: NA LIMITATIONS: none FINDINGS: LUNGS AND PLEURA: No opacities, masses or pneumothorax. No pleural effusion. MEDIASTINUM AND HILAR STRUCTURES: No masses or contour abnormalities. HEART AND VASCULAR STRUCTURES: Heart normal size. No evidence for failure. Vascular calcifications. BONES: No acute findings. HARDWARE: None in the chest. OTHER: No other significant finding. IMPRESSION: NO ACUTE RADIOGRAPHIC FINDING IN THE CHEST. TECHNICAL DOCUMENTATION: JOB ID: [id number] 2010 [email or web address]- All Rights Reserved Reading location - IP/workstation name: [email or web address]
--- NOTE | 2020-05-01 16:59 | RADIOLOGY REPORT (SQ) ---
EXAM DESCRIPTION: U/S ABDOMEN LIMITED W/O DOP IMAGES COMPLETED DATE/TIME: 05/01/2020 4:38 pm REASON FOR STUDY: Chest pain/epigastric pain that goes back COMPARISON: None. TECHNIQUE: Dynamic and static grayscale images acquired of the abdomen and recorded on PACS. Additio nal selected color Doppler and spectral images recorded. LIMITATIONS: Limited visualization of the pancreas due to obscuration by intervening bowel gas. FINDINGS: PANCREAS: The pancreas appears normal as visualized; the body and tail are not adequately characterized. LIVER: Echotexture is coarse with increased echogenicity consistent with fatty infiltration. LIVER VASCULATURE: Normal directional flow of the main portal vein and hepatic veins. GALLBLADDER: No stones. Normal wall thickness. No pericholecystic fluid. ULTRASOUND-DETECTED MENENDEZ'S SIGN: Negative. INTRAHEPATIC DUCTS AND COMMON DUCT: CBD and intrahepatic ducts normal caliber. No filling defects. INFERIOR VENA CAVA: Normal flow. AORTA: Normal as visualized. RIGHT KIDNEY: Normal size. Normal echogenicity. No solid or suspicious masses. No hydronephros is. No calcifications. PERITONEAL AND RIGHT PLEURAL SPACE: No ascites or effusions. OTHER: No other significant finding. IMPRESSION: Hepatic steatosis. Limited visualization of the pancreas and aorta. Otherwise normal s onographic appearance of the right upper quadrant. TECHNICAL DOCUMENTATION: JOB ID: [id number] 2010 [employer]- All Rights Reserved Reading location - IP/workstation name: [email or web address]
[2020-05-01 17:31] LABS: ABSOLUTE EOSINOPHILS # (AUTO) 0.4 10^3/uL (0.0-0.6); ABSOLUTE LYMPHOCYTES (AUTO) 2.6 10^3/uL (0.5-4.7); ABSOLUTE MONOCYTES (AUTO) 0.5 10^3/uL (0.1-1.4); ABSOLUTE NEUT (AUTO) 5.2 10^3/uL (1.7-8.2); BASOPHILS % (AUTO) 0.6 % (0-2); EOSINOPHILS % (AUTO) 4.1 % (0-6); HEMATOCRIT 41.6 % (36.0-47.0); HEMOGLOBIN 13.8 g/dL (12.0-15.5); LYMPHOCYTES % (AUTO) 29.5 % (13-45); MEAN CORPUSCULAR HEMOGLOBIN 27.9 pg (27.0-33.4); MEAN CORPUSCULAR HGB CONC 33.2 g/dL (32.0-36.0); MEAN CORPUSCULAR VOLUME 84 fl (80-97); MONOCYTES % (AUTO) 5.8 % (3-13); PLATELET COUNT 258 10^3/uL (150-450); RED BLOOD COUNT 4.95 10^6/uL (3.72-5.28); RED CELL DISTRIBUTION WIDTH 13.7 % (11.5-14.0); TOTAL CELLS COUNTED % (AUTO) 100 %; WHITE BLOOD COUNT 8.7 10^3/uL (4.0-10.5)
[2020-05-01 17:36] LABS: APPEARANCE,URINE CLEAR; BILIRUBIN,URINE NEGATIVE (NEGATIVE); COLOR,URINE STRAW; GLUCOSE, URINE NEGATIVE (NEGATIVE); KETONES,URINE NEGATIVE (NEGATIVE); LEUKOCYTE ESTERASE,URINE TRACE (NEGATIVE); NITRITE,URINE NEGATIVE (NEGATIVE); PROTEIN,URINE NEGATIVE (NEGATIVE); URINE SPECIFIC GRAVITY 1.005; UROBILINOGEN,URINE NEGATIVE mg/dL (<2.0)
[2020-05-01 17:52] LABS: ALBUMIN 4.6 g/dL (3.5-5.0); ALKALINE PHOSPHATASE 70 U/L (38-126); ANION GAP 6 (5-19); ASPARTATE AMINO TRANSFERASE 28 U/L (14-36); BILIRUBIN,TOTAL 0.3 mg/dL (0.2-1.3); BLOOD UREA NITROGEN 11 mg/dL (7-20); CALCIUM 9.8 mg/dL (8.4-10.2); CARBON DIOXIDE 29 mmol/L (22-30); CHLORIDE 102 mmol/L (98-107); CREATINE KINASE 58 U/L (30-135); GLUCOSE 95 mg/dL (75-110); TOTAL PROTEIN 7.4 g/dL (6.3-8.2); URINE AMPHETAMINES SCREEN NEGATIVE; URINE BARBITURATES SCREEN NEGATIVE; URINE BENZODIAZEPINES SCREEN NEGATIVE; URINE COCAINE SCREEN NEGATIVE; URINE MARIJUANA (THC) SCREEN NEGATIVE; URINE METHADONE SCREEN NEGATIVE; URINE PHENCYCLIDINE SCREEN NEGATIVE
[2020-05-01 17:54] LABS: ALCOHOL < 10 mg/dL (NONE DETECTED)
--- NOTE | 2020-05-01 20:06 | EKG REPORT ---
SEVERITY:- NORMAL ECG - SINUS RHYTHM : Confirmed by: Kemi Jason MD 01-May-2020 20:05:36
[2020-05-01 21:12] VITALS: BP 138/77
--- NOTE | 2020-05-01 21:13 | ER Document Report ---
ED General - General Chief Complaint: Chest Pain Stated Complaint: ABDOMINAL PAIN,BACK PAIN Time Seen by Provider: 05/01/20 15:45 Primary Care Provider: JC CALDWELL MD [ACTIVE STAFF] - Follow up as needed Mode of Arrival: Ambulatory Information source: Patient Notes: [age]-year-old female presented to ED for chest/epigastric pain. She states that she had some tightness in her chest this morning it went to her back and then went to the epigastric area and then she had burning in her whole center of her chest down to her abdomen. She states it started this morning. She has a history of hernia and herniated disc but is not the same pain there. She does have medicine prescribed for reflux. TRAVEL OUTSIDE OF THE [place] IN LAST 30 DAYS: No - HPI Onset: This morning Onset/Duration: Intermittent Quality of pain: Burning, Sharp Severity: Moderate Pain Level: 3 Associated symptoms: Chest pain, Nausea, Other - Burning substernal all the way to the epigastric area Exacerbated by: Food Relieved by: Other - States she got relief with the GI cocktail she was provided Similar symptoms previously: Yes Recently seen / treated by doctor: No - Related Data Allergies/Adverse Reactions: No Known Allergies Allergy (Verified 01/07/18 06:42) Home Medications: oxycodone, duloxetine, omeprazole gabapentin, flexerile, trazadone, biotin, citracal +d2, superiomega triglyceride, centrum silver, flonase, celecoxib Past Medical History - General Information source: Patient - Social History Smoking Status: Former Smoker Chew tobacco use (# tins/day): No Frequency of alcohol use: Heavy Drug Abuse: None Lives with: Family Family History: Reviewed & Not Pertinent Patient has homicidal ideation: No - Past Medical History Cardiac Medical History: Reports: Hx Hypertension - occasionally Pulmonary Medical History: Reports: Hx Asthma, Hx Bronchitis, Hx Pneumonia EENT Medical History: Reports: None Neurological Medical History: Reports: None Endocrine Medical History: Reports: None Renal/ Medical History: Reports: None Malignancy Medical History: Reports: Hx Breast Cancer GI Medical History: Reports: None Musculoskeletal Medical History: Reports None Skin Medical History: Reports None Psychiatric Medical History: Reports: None Traumatic Medical History: Reports: Hx Fractures Infectious Medical History: Reports: None Past Surgical History: Reports: Hx Breast Surgery - lumpectomy devon; rt axillary disection, Hx Orthopedic Surgery - left ankle - Immunizations Hx Diphtheria, Pertussis, Tetanus Vaccination: Yes Hx Pneumococcal Vaccination: 07/04/15 Review of Systems - Review of Systems Constitutional: No symptoms reported EENT: No symptoms reported Cardiovascular: Chest pain Respiratory: No symptoms reported Gastrointestinal: Abdominal pain - Burning epigastric pain going up through the substernal area, Nausea Genitourinary: No symptoms reported Female Genitourinary: No symptoms reported Musculoskeletal: No symptoms reported Skin: No symptoms reported Hematologic/Lymphatic: No symptoms reported Neurological/Psychological: No symptoms reported -: Yes All other systems reviewed and negative Physical Exam - Vital signs Vitals: Temp Pulse Resp BP Pulse Ox 98.0 F 71 18 135/81 H 92 05/01/20 14:42 05/01/20 14:42 05/01/20 14:42 05/01/20 14:42 05/01/20 14:42 Interpretation: Normal - General General appearance: Appears well, Alert - HEENT Head: Normocephalic, Atraumatic Eyes: Normal Pupils: PERRL - Respiratory Respiratory status: No respiratory distress Chest status: Tender, Other - Pain with food Breath sounds: Normal Chest palpation: Normal - Cardiovascular Rhythm: Regular Heart sounds: Normal auscultation Murmur: No - Abdominal Inspection: Normal Distension: No distension Bowel sounds: Normal Tenderness: Tender - epigastric area Organomegaly: No organomegaly - Back Back: Normal, Nontender - Extremities General upper extremity: Normal inspection, Nontender, Normal color, Normal ROM, Normal temperature General lower extremity: Normal inspection, Nontender, Normal color, Normal ROM, Normal temperature, Normal weight bearing. No: Fab's sign - Neurological Neuro grossly intact: Yes Cognition: Normal Orientation: AAOx4 [place] Coma Scale Eye Opening: Spontaneous [place] Coma Scale Verbal: Oriented Marcos Coma Scale Motor: Obeys Commands [place] Coma Scale Total: 15 Speech: Normal Motor strength normal: LUE, RUE, LLE, RLE Sensory: Normal - Psychological Associated symptoms: Normal affect, Normal mood - Skin Skin Temperature: Warm Skin Moisture: Dry Skin Color: Normal Course - Re-evaluation Re-evalutation: 05/01/20 21:19 Discussed x-rays and labs with patient and written report of x-rays and labs given to patient. She did have 2- troponins. She has no cardiac history. She does have severe reflux. She is on Prilosec but it does not seem to be helping. Patient does states she drinks 2-3 beers a night. I have instructed her please to stop severe until she can follow-up with GI. Patient was instructed to please follow-up with her primary care and get a GI consult. Patient verbalized understanding and agreement with treatment plan and patient was discharged home. - Vital Signs Vital signs: Temp Pulse Resp BP Pulse Ox 98.0 F 71 18 138/77 H 94 05/01/20 14:42 05/01/20 14:42 05/01/20 21:01 05/01/20 21:01 05/01/20 21:01 - Laboratory Result Diagrams: 05/01/20 16:58 05/01/20 16:58 Laboratory results interpreted by me: 05/01/20 05/01/20 16:58 16:58 Sodium 136.5 L Ur Leukocyte Esterase TRACE H - Diagnostic Test Radiology reviewed: Image reviewed, Reports reviewed Discharge - Discharge Clinical Impression: Epigastric pain Chest pain Qualifiers: Chest pain type: unspecified Qualified Code(s): R07.9 - Chest pain, unspecified Condition: Stable Disposition: HOME, SELF-CARE Additional Instructions: CHEST PAIN OF UNCLEAR CAUSE: The exact cause of your chest pain isn't clear. Fortunately, there is no evidence of a dangerous medical condition. Further testing may be required to find the source of the pain. Most often, we find that this pain is coming from the chest wall -- the muscles or rib joints in the chest. But chest pain can come from the lung and lung lining, the esophagus, the heart valves or heart lining, and even the stomach or gallbladder. Rest. Eat lightly until the pain is gone. We may prescribe medicine for pain and inflammation. You should call the physician immediately if the pain radiates to the shoulder, jaw or arms; if you start to run a fever or develop a cough; or if you develop shortness of breath, or other new or alarming symptoms. ACID REFLUX DISEASE (GERD): Gastro-Esophageal Reflux Disease (GERD) is caused by stomach acid refluxing back up into the esophagus. The valve at the end of the esophagus may be weak. This is common in persons with a hiatal hernia. GERD symptoms can include indigestion, chest pain, heartburn, or food "sticking." Certain foods, alcohol, and aspirin can make GERD worse. Treatment depends on the severity. Usually, antacids or acid-suppressing medicines are used. When the esophagus is acutely inflamed, the physician will often prescribe membrane-protective drugs such as Carafate. Some patients benefit from medication such as Reglan that tightens the valve at the top of the stomach. Avoid those foods that bring on your symptoms. For many people, these foods are coffee, chocolate, onions, garlic, and carbonated drinks. Don't use alcohol, aspirin, caffeine, or tobacco. Don't eat late at night -- within 4 hours of bedtime. Don't over-eat. If necessary, elevate the head of your bed about 4 inches so that stomach acid will not roll up into your esophagus. Call the doctor if you develop severe chest pain, inability to swallow fluids, fever, or worsening symptoms. ASPIRIN: Aspirin has been shown to have a beneficial effect on blood circulation by reducing the clotting effect of platelets in the blood. These beneficial effects can be achieved by taking just a single baby (81 mg) aspirin a day. It is recommended that any person over the age of forty take a single baby aspirin every day for heart and brain circulation, unless you are allergic to aspirin or have some significant bleeding disorder. It is strongly recommended that people who have proven cardiac or blood circulation disturbances should take a baby aspirin every day. ANTACID THERAPY: You have been instructed to start antacid therapy. Antacids directly neutralize stomach acid. This is useful for acid irritation of the esophagus, gastritis, and ulcers. You should take two tablespoons of antacid one hour after each meal and three hours after each meal. If you are not eating, take the antacid every two hours. If you are using a concentrate (such as Maalox TC), use only one tablespoon. Many antacids affect the bowels. The most common problem is diarrhea. In this case, a pure aluminum hydroxide antacid (such as AlternaGel) can be substituted for some or all doses. If the problem is constipation, add a teaspoon of Milk of Magnesia to each dose. Call the doctor if you experience continued diarrhea or constipation, or if you develop lightheadedness, bloody stool or vomitus, severe abdominal pain, or black stool. Reglan (Metoclopramide) Reglan has been prescribed. This medicine affects the stomach and intestines. It can be used to treat nausea and vomiting, to prevent reflux of stomach acid up into the esophagus, or to increase the contractions of the stomach and intestines. It is often prescribed for esophagitis, and for paralysis of the stomach in diabetics. Reglan can cause either mild restlessness or drowsiness. You should contact the doctor at once if you become extremely restless, anxious, or cannot sleep, or if you develop uncontrollable motions of the lips, tongue, or jaw. Do not take alcohol with this medicine. Do not drive or operate machinery until you have been taking this medicine long enough to know how it affects you. Call the doctor if you develop abdominal pains, lightheadedness, black stool, or blood in the stool or vomitus. I gave you a written report of your labs chest x-ray results. Please take these with you to your primary care doctor. You did get relief mostly pain with the GI cocktail. That was a mixture of Reglan Maalox and viscous lidocaine. Please call your primary care tomorrow and schedule a follow-up appointment with gastroenterology. He states you are taking Prilosec at this time. If that is not given you any relief from this pain try some Pepcid or Zantac until you can get a follow-up appointment with your GI specialist. FOLLOW-UP CARE: If you have been referred to a physician for follow-up care, call the physicia ns office for an appointment as you were instructed or within the next two days. If you experience worsening or a significant change in your symptoms, notify the physician immediately or return to the Emergency Department at any time for re-evaluation. Forms: Elevated Blood Pressure Referrals: JC CALDWELL MD [ACTIVE STAFF] - Follow up as needed
== END 2020-05-01 21:10 | disposition home or self-care (01) ==
LOC: ER 14:37
DX: R10.13 Epigastric pain (principal); R07.9 Chest pain, unspecified; R10.9 Unspecified abdominal pain; M54.9 Dorsalgia, unspecified; R11.0 Nausea; Z87.891 Personal history of nicotine dependence; I10 Essential (primary) hypertension; J45.909 Unspecified asthma, uncomplicated
CPT/HCPCS: 93005; 99284; 36415; 80307 ×2; 82550; 83690; 83735; 85025; 80053; 81001; 84484; 71046; 76705; 93010; A9270 ×3; J3490

== ENCOUNTER 2020-06-05 06:46 | Day surgery (SDC) | payer MEDICARE ==
[~2020-06-05 06:46] MED LIST changes: +ACETAMINOPHEN 1,000 MG/100 ML RTUPB IV ONE; +BUPIVACAINE HCL 0.5 % INJ/PF 30 ML SDV ONE; +CEFAZOLIN 1 GM/D5W RTU 1 GM/50 ML RTUPB IV PRN; -CEFAZOLIN SODIUM 2 GM in NORMAL SALINE 100 ML IV PRN; +LIDOCAINE 2% INJ (20 MG/ML) 20 ML MDV ONE; +MIDAZOLAM 2 MG/2 ML INJ ONE; +MORPHINE SULFATE 10 MG/ML INJ ONE; +ONDANSETRON HCL INJ/PF 4 MG/2 ML SDV ONE; +PROPOFOL INJ 200 MG/20 ML VIAL IV ONE
[2020-06-05] MEDS ORDERED: NORMAL SALINE INJ/PF 0.9% 10 ML SDV ONE (07:17)
[2020-06-05] MEDS ORDERED: POLYMYXIN B SULFATE INJ 500000 UNIT VIAL ONE (07:17)
[2020-06-05] MEDS ORDERED: BACITRACIN INJ 50,000 UNIT VIAL ONE (07:18)
[2020-06-05] MEDS ORDERED: BUPIVACAINE HCL 0.5 % INJ/PF 30 ML SDV ONE (08:23)
[2020-06-05] MEDS ORDERED: PROPOFOL INJ 200 MG/20 ML VIAL IV ONE (08:27)
[2020-06-05] MEDS: BUPIVACAINE INJ/PF LIPOSOME/PF 266 MG/20 ML SDV ONE ×2 (08:53→09:05)
--- NOTE | 2020-06-05 10:02 | Operative Report ---
Operative Report DATE OF SURGERY: 06/05/20 PREOPERATIVE DIAGNOSIS: Hallux abductovalgus left foot. POSTOPERATIVE DIAGNOSIS: Hallux abductovalgus left foot. OPERATION: Correction of bunion by Jaziel osteotomy with internal screw fixation left foot. SURGEON: JEREMÍAS REID WARDROBE CONSULTANT: KATHRYN HOLLAND ANESTHESIA: LMAC TISSUE REMOVED OR ALTERED: Bone, not sent for pathology. COMPLICATIONS: None. ESTIMATED BLOOD LOSS: Less than 0.1 mL INTRAOPERATIVE FINDINGS: There was a bone cyst at the medial dorsal aspect of the first metatarsal head left foot. PROCEDURE: Following induction of IV regional local anesthesia the left foot and leg were prepped and draped in usual sterile manner. A pneumatic tourniquet was placed around the left ankle and inflated to 250 mm of mercury after exsanguination of the limb via Esmarch bandage. The following procedure was then performed: Correction of bunion by Jaziel osteotomy with internal screw fixation left foot. Attention was directed to the dorsal aspect of the first metatarsal phalangeal joint where an approximately 6 cm dorsal linear incision was made. The incision was deepened via sharp dissection all bleeders were clamped and bovied as necessary for the purposes of hemostasis. A capsular incision was made in the s claudia manner as the original skin incision and was made medial to the extensor hallucis longus tendon. The capsule was then freed from the medial and lateral aspects of the first metatarsal phalangeal joint bringing into view the hypertrophied medial eminence of the first metatarsal head. Utilizing a TapSurge sagittal saw the hypertrophied medial eminence was osteotomized parallel to the long axis of the bone and removed in toto from the wound. Attention was then directed to the first interspace. utilizing sharp dissection the transverse adductor tendon was identified and sharply incised. Tension was then directed back to the medial aspect of the first metatarsal head were in Jaziel osteotomy was then performed with the apex being distal and the dorsal and plantar wings both at 60 degrees. The capital fragment was then shifted laterally on the first metatarsal by approximately 6 mm. The osteotomy was then temporarily fixated utilizing a 0.45 guidewire that was directed from distal dorsal to proximal plantar. An x-ray was taken utilizing the C arm and it was noted that the guidewire was in good position and that the first metatarsophalangeal joint was in a more anatomically correct position. The reamer measure was then threaded down the guidewire and a hole was reamed into the dorsal aspect of the first metatarsal head to accept the head of the screw. The distal aspect of the osteotomy was then overdrilled utilizing a 2.0 drill. A 28 by 3.0 cannulated screw was threaded down the guidewire and tightened utilizing a screwdriver until the osteotomy was closed down on itself and stably fixated. An x-ray was taken utilizing the C arm to ensure that the screw is in good position and through the proximal cortex. The redundant bone on the medial aspect of the first metatarsal head was osteotomized parallel to the long axis of the bone. It was noted at this time that there was a bone cyst at the distal medial edge of the first metatarsal and this was filled utilizing the excess bone that had been previously removed. The metatarsal was then rasped smooth utilizing a [employer] rasp. Surgical site was then flushed with copious amounts of an antibacterial saline solution. It was decided at this time not to perform an osteotomy at the proximal phalanx because enough correction had been achieved through the above procedure. The capsule was then coaptated and maintained utilizing simple interrupted sutures of 3-0 Vicryl and the extensor hallucis longus tendon was then tacked medially utilizing simple interrupted sutures of 3-0 Vicryl. The subcutaneous tissue was coaptated and maintained utilizing simple interrupted sutures of 4-0 Vicryl. 20 mL of Exparel was then injected along the surgical incision and the surgical site. The skin was then coaptated and maintained utilizing horizontal mattress sutures of 5-0 nylon. A dry sterile dressing was then applied consisting of Ignacio silk, 4 x 4's, conform, Kerlix, and Coban. The pneumatic tourniquet was released it was noted that all digits are warm and viable and the patient was transferred to the recovery room.
--- NOTE | 2020-06-05 10:07 | PDOC DISCHARGE SUMMARY ---
Discharge Summary-[facility] Discharge Summary: Date of admission: June 05, 2020. Date of discharge: June 05, 2020. Surgical procedure: Correction of bunion by Jaziel osteotomy with internal screw fixation left foot. Postoperative diagnosis: Hallux abductovalgus left foot. Surgeon: Mitra Weller D.P.M. programs assistant: Zurdo Lamb D.P.M. Patient was admitted to [facility] with a chief complaint of a painful bunion on her left foot. She stated that she has had it for a number of years and it had been worsening over the past few years. She tried conservative therapy without any change in her symptoms and wanted to have the bunion surgically corrected. The patient underwent the above surgical procedure without any complications and was transferred to the recovery room. She was discharged with a postop shoe and postoperative instructions including no weightbearing on the surgical foot. Patient was given a follow-up appointment in the doctor's office on June 11 at 1030. Patient was discharged from [facility].
--- NOTE | 2020-06-05 12:28 | RADIOLOGY REPORT (SQ) ---
EXAM DESCRIPTION: NO CHG FLUORO; FOOT LEFT 2 VIEWS IMAGES COMPLETED DATE/TIME: 06/05/2020 11:36 am REASON FOR STUDY: LEFT FOOT BUNIONECTOMY COMPARISON: None. FLUOROSCOPY TIME: 10 seconds 2 Images saved to PACS LIMITATIONS: None. PROCEDURE: Bunionectomy FINDINGS: Images from fluoro document the procedure. IMPRESSION: Bunionectomy. Refer to operative note for further information. COMMENT: PQRS 6045F: Fluoroscopy time of the procedure is documented in the report. TECHNICAL DOCUMENTATION: JOB ID: [id number] 2010 [employer]- All Rights Reserved Reading location - IP/workstation name: [email or web address]
--- NOTE | 2020-06-05 12:28 | RADIOLOGY REPORT (SQ) ---
EXAM DESCRIPTION: NO CHG FLUORO; FOOT LEFT 2 VIEWS IMAGES COMPLETED DATE/TIME: 06/05/2020 11:36 am REASON FOR STUDY: LEFT FOOT BUNIONECTOMY COMPARISON: None. FLUOROSCOPY TIME: 10 seconds 2 Images saved to PACS LIMITATIONS: None. PROCEDURE: Bunionectomy FINDINGS: Images from fluoro document the procedure. IMPRESSION: Bunionectomy. Refer to operative note for further information. COMMENT: PQRS 6045F: Fluoroscopy time of the procedure is documented in the report. TECHNICAL DOCUMENTATION: JOB ID: [id number] 2010 [employer]- All Rights Reserved Reading location - IP/workstation name: [email or web address]
== END 2020-06-05 10:45 | disposition home or self-care (01) ==
LOC: SC 06:46
PROVIDERS: ATTEND Podiatrist Foot Surgery
DX: M20.12 Hallux valgus (acquired), left foot (principal); M79.7 Fibromyalgia; K21.9 Gastro-esophageal reflux disease without esophagitis; Z85.3 Personal history of malignant neoplasm of breast; Z03.818 Encounter for observation for suspected exposure to other biological agents ruled out
CPT/HCPCS: 01480; 87635; C1713; C1769; C9290; C9803; J0131; J0690; J2250; J2270; J2405; J2704; J3490